=== PATIENT | male | born 1995 | race African-American/Black ===

== ENCOUNTER 2017-09-04 21:20 | Emergency (ER) | payer OTHER ==
[2017-09-04] MEDS ORDERED: Bacitracin Zinc 1 Packet ONE (23:26)
[2017-09-04] MEDS ORDERED: Adacel (T-DAP) 0.5 ML VIAL ONE (23:33)
[2017-09-05] MEDS ORDERED: Cephalexin 500 MG CAP ONE (00:01)
== END 2017-09-05 00:08 | disposition home or self-care (01) ==
LOC: MADERS 21:20
DX: S61.212A Laceration without foreign body of right middle finger without damage to nail, initial encounter (principal); W25.XXXA Contact with sharp glass, initial encounter
CPT/HCPCS: 90471; 90715; 99282